=== PATIENT | male | born 1980 | race Caucasian/White ===

== ENCOUNTER 2017-07-11 12:39 | Emergency (ER) | payer SELFPAY ==
[2017-07-11 12:56] LABS: APPEARANCE CLEAR (CLEAR); BILIRUBIN NEGATIVE (NEGATIVE); COLOR YELLOW (YELLOW); GLUCOSE NEGATIVE (NEGATIVE); KETONE SMALL mg/dL (NEGATIVE); NITRITE NEGATIVE (NEGATIVE); PROTEIN NEGATIVE (NEGATIVE)
[2017-07-11 13:05] LABS: UDS - AMPHET POSITIVE QUAL (NEGATIVE); UDS - BARB NEGATIVE QUAL (NEGATIVE); UDS - BENZO NEGATIVE QUAL (NEGATIVE); UDS - COCAINE NEGATIVE QUAL (NEGATIVE); UDS - OPIATE NEGATIVE QUAL (NEGATIVE); UDS - PCP NEGATIVE QUAL (NEGATIVE); UDS - THC NEGATIVE QUAL (NEGATIVE)
[2017-07-11 13:06] LABS: BASOPHILS 0.3 % (0-2); HEMATOCRIT 42.7 % (42.0-54.0); HEMOGLOBIN 14.3 g/dL (13.5-17.5); IMMATURE GRANULOCYTES 0.3 % (0-5); LYMPHOCYTES 13.2 % (15-50); MCH 29.1 pg (26.0-34.0); MCHC 33.5 g/dL (31.0-37.0); MEAN PLATELET VOLUME 9.3 fL (7.4-10.4); MONOCYTES 6.7 % (2-11); NEUTROPHILS 78.5 % (40-80); PLATELET COUNT 365 10x3/uL (130-400); RBC 4.91 10x6/uL (4.20-6.10); RDW 14.1 % (11.5-14.5); WBC 13.5 10x3/uL (4.8-10.8)
[2017-07-11 13:20] LABS: ALKALINE PHOSPHATASE 105 U/L (46-116); ALT (SGPT) 33 U/L (10-68); BILIRUBIN - TOTAL 0.81 mg/dL (0.2-1.3); CALC OSMOLALITY 278 mosm/kg (275-300); CALCIUM 8.9 mg/dL (8.5-10.1); CARBON DIOXIDE 27.1 mmol/L (21.0-32.0); CHLORIDE - SERUM 102 mmol/L (98-107); GLUCOSE 91 mg/dL (74-106); POTASSIUM - SERUM 3.6 mmol/L (3.5-5.1); PROTEIN - SERUM 7.6 g/dL (6.4-8.2); SODIUM 140 mmol/L (136-145); UREA NITROGEN 13 mg/dL (7-18); eGFR NON AFRICAN AMERICAN > 90 mL/min (90-120)
[2017-07-31 10:04] VITALS: BMI 29.3
== END 2017-07-12 02:00 | disposition short-term general hospital (02) ==
LOC: D.ER 12:39
PROVIDERS: Emergency Medicine
DX: R45.851 Suicidal ideations (principal); S51.812A Laceration without foreign body of left forearm, initial encounter; X78.9XXA Intentional self-harm by unspecified sharp object, initial encounter; Y93.89 Activity, other specified; Y92.89 Other specified places as the place of occurrence of the external cause; F17.200 Nicotine dependence, unspecified, uncomplicated; F33.9 Major depressive disorder, recurrent, unspecified

== ENCOUNTER 2017-07-29 22:20 | Inpatient (IN) | payer MEDICAID ==
[~2017-07-29] VITALS: Ht 175.3 cm; Wt 90.0 kg
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
--- NOTE | ~2017-07-29 | DS ---
PATIENT:RAYMOND CHADWICK :84 MEDICAL RECORD: [id number] DISCHARGE SUMMARY ADMISSION DATE: 07/30/17 DISCHARGE DATE: 07/31/17 This is a discharge dated 07/31/2017 from the inpatient hospital. DISCHARGE DIAGNOSES: 1. Intentional drug overdose. 2. Stimulant use disorder. 3. Suicide attempt. 4. Major depressive disorder. 5. Anxiety. 6. Altered mental status. CONSULTS THIS HOSPITALIZATION: Psychiatry with Dr. Joseph. HOSPITAL COURSE: Full H&P is located elsewhere on the chart on this 36-year-old male who was admitted after an intentional drug overdose with altered mental status. He was admitted to the ICU and was on a suicide watch. He had IV fluids for hydration. He was seen by psychiatry, Dr. Joseph. Electrolytes were managed by protocol. Case management was involved for discharge planning. He was seen by a social service assistant from [facility] and recommended for acute psych hospitalization, he was considered stable for discharge to [facility] in [place] on 07/31/2017. DISCHARGE MEDICATIONS: As per discharge medication reconciliation. DISCHARGE DISPOSITION: The patient is discharged to [facility] in [place]. He will continue his current diet and level of activity and will follow up with primary care and for outpatient therapy upon discharge from that facility. At least 30 minutes was spent in this discharge activity. TRANSINT:[id number] Voice Confirmation ID: [id number] DOCUMENT ID: [id number] Dictated By: ANA FAY I have interviewed/examined the above patient and agree with these documented findings. KASEY SERNA MD at 1459 at 1459 CC: [id number] DICTATION DATE: 09/02/17 1429 [employer]PERATIONS SPECIALISTS: 09/03/17 1009 DIS IN 07/31/17 [id number] [place] [address]
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
[2017-07-29 22:34] LABS: APPEARANCE CLEAR (CLEAR); BILIRUBIN NEGATIVE (NEGATIVE); COLOR YELLOW (YELLOW); GLUCOSE NEGATIVE (NEGATIVE); KETONE NEGATIVE (NEGATIVE); NITRITE NEGATIVE (NEGATIVE); PROTEIN NEGATIVE (NEGATIVE); SPECIFIC GRAVITY 1.015 (1.005-1.020); UROBILINOGEN NORMAL (NORMAL)
[2017-07-29 22:47] LABS: BASOPHILS 0.3 % (0-2); EOSINOPHILS 2.4 % (0-7); HEMATOCRIT 42.6 % (42.0-54.0); HEMOGLOBIN 14.1 g/dL (13.5-17.5); IMMATURE GRANULOCYTES 0.4 % (0-5); LYMPHOCYTES 13.8 % (15-50); MCH 28.8 pg (26.0-34.0); MCHC 33.1 g/dL (31.0-37.0); MCV 86.9 fL (80.0-100.0); MEAN PLATELET VOLUME 9.3 fL (7.4-10.4); MONOCYTES 9.7 % (2-11); NEUTROPHILS 73.4 % (40-80); PLATELET COUNT 320 10x3/uL (130-400); RDW 13.8 % (11.5-14.5)
[2017-07-29 22:52] LABS: UDS - AMPHET POSITIVE QUAL (NEGATIVE); UDS - BARB NEGATIVE QUAL (NEGATIVE); UDS - BENZO NEGATIVE QUAL (NEGATIVE); UDS - COCAINE NEGATIVE QUAL (NEGATIVE); UDS - OPIATE NEGATIVE QUAL (NEGATIVE); UDS - PCP NEGATIVE QUAL (NEGATIVE); UDS - THC NEGATIVE QUAL (NEGATIVE)
[2017-07-29 23:07] LABS: ALKALINE PHOSPHATASE 91 U/L (46-116); ALT (SGPT) 24 U/L (10-68); BILIRUBIN - TOTAL 0.31 mg/dL (0.2-1.3); CALC OSMOLALITY 281 mosm/kg (275-300); CALCIUM 8.3 mg/dL (8.5-10.1); CARBON DIOXIDE 28.1 mmol/L (21.0-32.0); CHLORIDE - SERUM 107 mmol/L (98-107); CREATININE - SERUM 1.1 mg/dL (0.6-1.3); GLUCOSE 98 mg/dL (74-106); LIPASE 109 U/L (73-393); POTASSIUM - SERUM 3.8 mmol/L (3.5-5.1); PROTEIN - SERUM 6.1 g/dL (6.4-8.2); SODIUM 141 mmol/L (136-145); UREA NITROGEN 15 mg/dL (7-18); eGFR NON AFRICAN AMERICAN 81 mL/min (90-120)
[2017-07-30] VITALS (22 sets, daily range): BP systolic 90–106; BP diastolic 50–77; BMI 24.4
[2017-07-31] VITALS (12 sets, daily range): BP systolic 105–134; BP diastolic 68–91; Ht 175.3 cm; Wt 90.0 kg
[2017-07-31 03:35] LABS: BASOPHILS 0.2 % (0-2); HEMATOCRIT 41.3 % (42.0-54.0); HEMOGLOBIN 13.3 g/dL (13.5-17.5); IMMATURE GRANULOCYTES 0.4 % (0-5); LYMPHOCYTES 24.3 % (15-50); MCH 28.4 pg (26.0-34.0); MCHC 32.2 g/dL (31.0-37.0); MCV 88.1 fL (80.0-100.0); MEAN PLATELET VOLUME 9.4 fL (7.4-10.4); MONOCYTES 8.9 % (2-11); NEUTROPHILS 64.2 % (40-80); PLATELET COUNT 318 10x3/uL (130-400); RBC 4.69 10x6/uL (4.20-6.10); RDW 14.2 % (11.5-14.5)
[2017-07-31 03:39] LABS: WBC 8.6 10x3/uL (4.8-10.8)
[2017-07-31 04:01] LABS: ALBUMIN 2.7 g/dL (3.4-5.0); ALKALINE PHOSPHATASE 78 U/L (46-116); ALT (SGPT) 20 U/L (10-68); AMYLASE - SERUM 27 U/L (25-115); BILIRUBIN - TOTAL 0.47 mg/dL (0.2-1.3); CALCIUM 8.3 mg/dL (8.5-10.1); CARBON DIOXIDE 28.3 mmol/L (21.0-32.0); CHLORIDE - SERUM 109 mmol/L (98-107); GLUCOSE 83 mg/dL (74-106); LIPASE 78 U/L (73-393); POTASSIUM - SERUM 3.8 mmol/L (3.5-5.1); PROTEIN - SERUM 5.5 g/dL (6.4-8.2); SODIUM 143 mmol/L (136-145); THYROID STIMULATING HORMONE 0.34 uIU/mL (0.36-3.74); eGFR NON AFRICAN AMERICAN > 90 mL/min (90-120)
[2017-07-31 04:06] LABS: CALC OSMOLALITY 284 mosm/kg (275-300); UREA NITROGEN 14 mg/dL (7-18)
== END 2017-07-31 18:37 | disposition short-term general hospital (02) | DRG 918 ==
LOC: D.ER 22:20 → D.ICU 07-30 02:55
PROVIDERS: Family Medicine
DX: T43.592A Poisoning by other antipsychotics and neuroleptics, intentional self-harm, initial encounter (principal); F32.9 Major depressive disorder, single episode, unspecified; Z72.0 Tobacco use; S40.812A Abrasion of left upper arm, initial encounter

== ENCOUNTER 2017-09-24 20:00 | Emergency (ER) | payer MEDICAID ==
[2017-07-31 10:04] VITALS: BMI 29.3
== END 2017-09-24 21:00 | disposition home or self-care (01) ==
LOC: D.ER 20:00
DX: H66.92 Otitis media, unspecified, left ear (principal)

== ENCOUNTER 2017-10-01 15:07 | Emergency (ER) | payer MEDICAID ==
[2017-07-31 10:04] VITALS: BMI 29.3
== END 2017-10-01 16:37 | disposition home or self-care (01) ==
LOC: D.ER 15:07
DX: H92.03 Otalgia, bilateral (principal)

== ENCOUNTER 2017-10-01 18:46 | Emergency (ER) | payer MEDICAID ==
[2017-07-31 10:04] VITALS: BMI 29.3
== END 2017-10-01 22:42 | disposition home or self-care (01) ==
LOC: D.ER 18:46
DX: H92.03 Otalgia, bilateral (principal)

== ENCOUNTER 2017-10-02 14:23 | Emergency (ER) | payer MEDICAID ==
[2017-07-31 10:04] VITALS: BMI 29.3
== END 2017-10-02 16:04 | disposition home or self-care (01) ==
LOC: D.ER 14:23
DX: J06.9 Acute upper respiratory infection, unspecified (principal); J20.9 Acute bronchitis, unspecified; J01.90 Acute sinusitis, unspecified; F17.200 Nicotine dependence, unspecified, uncomplicated

== ENCOUNTER 2017-11-01 11:54 | Emergency (ER) | payer MEDICAID ==
[2017-07-31 10:04] VITALS: BMI 29.3
[2017-11-01 12:35] LABS: BASOPHILS 0.3 % (0-2); EOSINOPHILS 2.8 % (0-7); HEMOGLOBIN 14.3 g/dL (13.5-17.5); IMMATURE GRANULOCYTES 0.4 % (0-5); LYMPHOCYTES 15.7 % (15-50); MCH 29.2 pg (26.0-34.0); MCHC 33.3 g/dL (31.0-37.0); MCV 87.9 fL (80.0-100.0); MEAN PLATELET VOLUME 9.5 fL (7.4-10.4); MONOCYTES 7.2 % (2-11); NEUTROPHILS 73.6 % (40-80); PLATELET COUNT 307 10x3/uL (130-400); RBC 4.89 10x6/uL (4.20-6.10); RDW 14.7 % (11.5-14.5); WBC 11.3 10x3/uL (4.8-10.8)
[2017-11-01 12:50] LABS: ALBUMIN 3.2 g/dL (3.4-5.0); ALKALINE PHOSPHATASE 69 U/L (46-116); ALT (SGPT) 26 U/L (10-68); BILIRUBIN - TOTAL 0.38 mg/dL (0.2-1.3); CALC OSMOLALITY 291 mosm/kg (275-300); CALCIUM 8.4 mg/dL (8.5-10.1); CARBON DIOXIDE 27.8 mmol/L (21.0-32.0); CHLORIDE - SERUM 110 mmol/L (98-107); CREATININE - SERUM 1.1 mg/dL (0.6-1.3); GLUCOSE 102 mg/dL (74-106); POTASSIUM - SERUM 3.9 mmol/L (3.5-5.1); PROTEIN - SERUM 6.4 g/dL (6.4-8.2); SODIUM 146 mmol/L (136-145); UREA NITROGEN 14 mg/dL (7-18); eGFR NON AFRICAN AMERICAN 81 mL/min (90-120)
== END 2017-11-01 15:02 | disposition home or self-care (01) ==
LOC: D.ER 11:54
PROVIDERS: Emergency Medicine
DX: J20.9 Acute bronchitis, unspecified (principal); F15.90 Other stimulant use, unspecified, uncomplicated

== ENCOUNTER 2019-07-17 14:08 | Emergency (ER) | payer MEDICAID ==
[~2019-07-17] VITALS: Ht 172.7 cm; Wt 104.5 kg
[2019-07-17 14:23] VITALS: Ht 172.7 cm; Wt 104.5 kg
[2019-07-17] MEDS ORDERED: CLEOCIN HCL300 MG PO (15:45)
[2019-07-17 16:32] VITALS: BP 146/86
== END 2019-07-17 16:33 | disposition home or self-care (01) ==
LOC: D.ER 14:08
DX: L02.414 Cutaneous abscess of left upper limb (principal)

== ENCOUNTER 2020-03-17 16:03 | Emergency (ER) | payer OTHER ==
[~2020-03-17] VITALS: Ht 172.7 cm; Wt 104.5 kg
[~2020-03-17 16:03] MED LIST: CLEOCIN HCL300 MG PO
[2020-03-17 16:11] VITALS: BP 160/94; Ht 172.7 cm; Wt 104.5 kg
[2020-03-17 16:52] LABS: BASOPHILS 0.5 % (0-2); EOSINOPHILS 1.9 % (0-7); HEMATOCRIT 43.5 % (42.0-54.0); HEMOGLOBIN 14.7 g/dL (13.5-17.5); IMMATURE GRANULOCYTES 0.2 % (0-5); LYMPHOCYTES 16.4 % (15-50); MCH 28.7 pg (26.0-34.0); MCHC 33.8 g/dL (31.0-37.0); MEAN PLATELET VOLUME 8.7 fL (7.4-10.4); MONOCYTES 9.9 % (2-11); NEUTROPHILS 71.1 % (40-80); PLATELET COUNT 324 10x3/uL (130-400); RBC 5.12 10x6/uL (4.20-6.10); RDW 13.6 % (11.5-14.5); WBC 12.8 10x3/uL (4.8-10.8)
[2020-03-17 17:23] LABS: ANION GAP 14.8 mmol/L (8-16); CALCIUM 8.7 mg/dL (8.5-10.1); CARBON DIOXIDE 27.1 mmol/L (21.0-32.0); CREATININE - SERUM 1.2 mg/dL (0.6-1.3); POTASSIUM - SERUM 3.9 mmol/L (3.5-5.1)
--- NOTE | 2020-03-17 17:29 | NUR ---
DR. BUSH NOTIFIED AND SITTER AT BEDSIDE ORDERED. SITTER AT BEDSIDE. NOTIFIED CHARGE NURSE AND ATTENDING IN REGARDS TO ASSESSMENT FINDINGS. RESOURCES GIVEN TO PT AND SAFETY PLAN INITIATED.
[2020-03-17 17:30] LABS: ALBUMIN 4.3 g/dL (3.4-5.0); BILIRUBIN - TOTAL 1.04 mg/dL (0.2-1.3); MAGNESIUM - SERUM 2.4 mg/dL (1.8-2.4); PROTEIN - SERUM 7.8 g/dL (6.4-8.2)
[2020-03-17 19:18] LABS: UDS - AMPHET POSITIVE QUAL (NEGATIVE); UDS - BARB NEGATIVE QUAL (NEGATIVE); UDS - BENZO NEGATIVE QUAL (NEGATIVE); UDS - COCAINE NEGATIVE QUAL (NEGATIVE); UDS - OPIATE NEGATIVE QUAL (NEGATIVE); UDS - PCP NEGATIVE QUAL (NEGATIVE); UDS - THC NEGATIVE QUAL (NEGATIVE)
[2020-03-17 19:44] LABS: BILIRUBIN NEGATIVE (NEGATIVE); GLUCOSE NEGATIVE (NEGATIVE); KETONE NEGATIVE (NEGATIVE); NITRITE NEGATIVE (NEGATIVE); UROBILINOGEN NORMAL (NORMAL)
== END 2020-03-17 23:28 ==
LOC: D.ER 16:03
PROVIDERS: Family Medicine
DX: R45.851 Suicidal ideations (principal); D72.829 Elevated white blood cell count, unspecified; T14.8XXA Other injury of unspecified body region, initial encounter; X58.XXXA Exposure to other specified factors, initial encounter

== ENCOUNTER 2020-12-09 14:39 | Emergency (ER) | payer BC, OTHER ==
[~2020-12-09] VITALS: Ht 172.7 cm; Wt 95.5 kg
[2020-12-09 14:56] VITALS: Ht 172.7 cm; Wt 95.5 kg
[2020-12-09 17:24] LABS: BILIRUBIN NEGATIVE (NEGATIVE); KETONE NEGATIVE (NEGATIVE); NITRITE NEGATIVE (NEGATIVE); UROBILINOGEN NORMAL mg/dL (< 2)
[2020-12-09 19:54] LABS: HEMATOCRIT 46.5 % (42.0-54.0); HEMOGLOBIN 15.4 g/dL (13.5-17.5); LYMPHOCYTE ABS# 1.81 10x3/uL (1.32-3.57); MCH 27.2 pg (26.0-34.0); MCHC 33.1 g/dL (31.0-37.0); MEAN PLATELET VOLUME 9.1 fL (7.4-10.4); NEUTROPHIL ABS# 7.13 10x3/uL (1.78-5.38); PLATELET COUNT 350 10x3/uL (130-400); RBC 5.67 10x6/uL (4.20-6.10); RDW 16.5 % (11.5-14.5)
[2020-12-09 20:10] LABS: ANION GAP 14.8 mmol/L (8-16); CALCIUM 8.3 mg/dL (8.5-10.1); CARBON DIOXIDE 23.1 mmol/L (21.0-32.0); CREATININE - SERUM 1.2 mg/dL (0.6-1.3); POTASSIUM - SERUM 3.9 mmol/L (3.5-5.1)
[2020-12-09 20:15] LABS: BILIRUBIN - TOTAL 0.33 mg/dL (0.2-1.3); PROTEIN - SERUM 6.6 g/dL (6.4-8.2)
[2020-12-09 21:29] LABS: EOSINOPHILS 1 % (0-7); LYMPHOCYTES 17 % (15-50); MONOCYTES 5 % (2-11); NEUTROPHILS 74 % (40-80); PLATELET ESTIMATE NORMAL; PLATELET MORPHOLOGY GIANT PLTS PRESENT; ROULEAUX 1+
[2020-12-09 22:11] VITALS: BP 134/85
== END 2020-12-09 22:11 | disposition home or self-care (01) ==
LOC: D.ER 14:39
PROVIDERS: Emergency Medicine; Family Medicine
DX: R30.0 Dysuria (principal); R10.9 Unspecified abdominal pain